=== PATIENT | female | born 1980 | race Caucasian/White ===

== ENCOUNTER 2017-12-30 08:20 | Emergency (ER) | payer BC, SELFPAY ==
[2017-12-30] VITALS (7 sets, daily range): BP systolic 126–174; BP diastolic 73–104; PULSE 103–140; RESP 19–26; TEMP 36.9–38.5; O2SAT 94–100; BMI 33.9
--- NOTE | 2017-12-30 08:38 | HMH.EDGENADL ---
ED Disposition Clinical Impression: Community acquired pneumonia Qualifiers: Laterality: right Lung location: upper lobe of lung Qualified Code(s): J18.1 - Lobar pneumonia, unspecified organism Disposition: Home, Self-Care Condition on Discharge: Good Instructions: DI for Pneumonia -- Adult Additional Instructions: Additional instructions for PNEUMONIA: See your physician as soon as possible for further evaluation. Return immediately if you have an uncontrollable fever greater than 102 degrees, difficulty breathing or shortness of breath, persistent vomiting, or severe chest pain. Prescriptions: Hydrocod/Acet 5/325 mg [[place] 5/325mg tablet] 1 tab PO Q6HP PRN #10 tab PRN Reason: Pain Doxycycline Monohydrate [Monodox] 100 mg PO BID #20 cap - Critical Care Critical Care Time: No Attestation: On 12/30/17, the high probability of a clinically significant, sudden or life threatening deterioration of the following system(s) required my full and direct attention, intervention and personal management. The time I documented below is in addition to time spent performing reported procedures but includes the following listed in this critical care notation. Medical Decision Making - Grant Inquiry Pt receiving controlled substance: No Vital Signs: 12/30/17 08:34 12/30/17 09:21 12/30/17 09:45 Temperature 100.9 F H Temperature Source Oral Pulse Rate 140 H Pulse Rate [Right Brachial] 137 H 129 H Respiratory Rate 26 H 22 Blood Pressure [Right Arm] 152/104 174/83 Blood Pressure Mean [Right Arm] 120 113 Blood Pressure Source [Right Arm] Automatic Cuff Automatic Cuff Blood Pressure Position [Right Arm] Sitting Sitting 02 Sat by Pulse Oximetry 97 97 100 Oxygen Delivery Method Room Air Room Air Room Air Oxygen Flow Rate (LPM) 12/30/17 09:59 12/30/17 11:00 12/30/17 11:30 Temperature 101.3 F H 98.7 F 98.5 F Temperature Source Oral Oral Oral Pulse Rate Pulse Rate [Right Brachial] 127 H 110 H 107 H Respiratory Rate 22 21 20 Blood Pressure [Right Arm] 169/84 126/77 131/73 Blood Pressure Mean [Right Arm] 112 93 92 Blood Pressure Source [Right Arm] Automatic Cuff Automatic Cuff Automatic Cuff Blood Pressure Position [Right Arm] Sitting Sitting Standing 02 Sat by Pulse Oximetry 98 96 94 L Oxygen Delivery Method Nasal Cannula Room Air Room Air Oxygen Flow Rate (LPM) 2 - Lab Data Lab Results 12/30/17 08:45: WBC 7.4, RBC 4.37, Hgb 13.0, Hct 38.6, MCV 88.5, MCH 29.8, MCHC 33.7, RDW 12.2, Plt Count 390, MPV 6.8 L, Neut % (Auto) 72.3, Lymph % (Auto) 20.5, [place] % (Auto) 5.2, Eos % (Auto) 1.6, Baso % (Auto) 0.4, Neut # (Auto) 5.4, Lymph # (Auto) 1.5, [place] # (Auto) 0.4, Eos # (Auto) 0.1, Baso # (Auto) 0.0 12/30/17 08:45: Sodium 132 L, Potassium 3.6, Chloride 98, Carbon Dioxide 24, Anion Gap 13.6, BUN 12, Creatinine 0.82, Estimated Creat Clear 141, Estimated GFR 78, Est GFR ( Amer) 95, Glucose 99, Calcium 9.3, Total Bilirubin 0.7, AST 8 L, ALT 38, Alkaline Phosphatase 127 H, Total Protein 9.6 H, Albumin 4.1, Globulin 5.5 H, Albumin/Globulin Ratio 0.7 L 12/30/17 08:45: Lactic Acid 1.6 12/30/17 08:45: D-Dimer 1230 H* 12/30/17 08:45: Total Creatine Kinase 55, CK-MB (CK-2) < 0.5, CK-MB (CK-2) Rel Index 0.9, Troponin I < 0.02 12/30/17 08:45: Serum HCG, Qual Negative Result diagrams: 12/30/17 08:45 12/30/17 08:45 Orders (Tests/Meds): ED MEDICATIONS Generic Name Dose Route Start Last Admin Trade Name Freq PRN Reason Stop Dose Admin Azithromycin 500 mg/ Sodium 250 mls @ 250 mls/hr 12/30/17 09:00 12/30/17 09:57 Chloride IV 01/13/18 08:59 250 mls/hr Q24H HAO Administration Protocol Ceftriaxone Sodium 1 gm/ 50 mls @ 100 mls/hr 12/30/17 09:00 12/30/17 09:33 Sodium Chloride IV 01/13/18 08:59 100 mls/hr Q24H HAO Administration Protocol Discontinued Medications Generic Name Dose Route Start Last Admin Trade Name Freq PRN Reason Stop Dose Admin Acetaminophen 650 m
--- NOTE | 2017-12-30 08:40 | XR_ITS ---
XR chest 2V HISTORY: ITS.REASON: COUGH ORDERING PHYSICIAN: Jakob Munoz MD PATIENT AGE: 37 years COMPARISON: None available FINDINGS: The cardiomediastinal silhouette and pulmonary vascularity are within normal limits. Patchy infiltrate is present in the right upper lobe. There are low lung volumes with some vascular crowding in the right lung base. No obvious effusion. No acute bony anomalies. IMPRESSION: Right upper lobe pneumonia
[2017-12-30 08:54] LABS: Hematocrit 38.6 % (37.0-47.0); Mean Corpuscular HGB Conc 33.7 g/dL (31.8-35.4); Mean Corpuscular Hemoglobin 29.8 pg (27.0-31.2); Mean Corpuscular Volume 88.5 fl (81-99); Red Blood Count 4.37 M/mm3 (4.20-5.40); White Blood Count 7.4 K/mm3 (4.8-10.8)
[2017-12-30 08:55] LABS: Basophils % 0.4 % (0.1-2.0); Eosinophils # 0.1 K/mm3 (0.0-0.4); Eosinophils % 1.6 % (0.1-12.0); Lymphocytes # 1.5 K/mm3 (0.7-4.5); Lymphocytes % 20.5 K/mm3 (10-50); Mean Platelet Volume 6.8 fl (7.4-10.4); Monocytes # 0.4 K/mm3 (0.1-1.0); Monocytes % 5.2 % (1.7-9.3); Neutrophils # 5.4 K/mm3 (1.8-7.8); Neutrophils % 72.3 % (37.0-80.0); Platelet Count 390 K/mm3 (142-424); Red Cell Distribution Width 12.2 % (11.5-17.5)
[2017-12-30 09:08] LABS: Alanine Aminotransferase 38 U/L (12-78); Albumin Level 4.1 gm/dL (3.4-5.0); Albumin/Globulin Ratio 0.7 (1.1-1.8); Alkaline Phosphatase 127 U/L (46-116); Anion Gap 13.6 mEq/L (5-15); Aspartate Amino Transferase 8 U/L (15-37); Bilirubin,Total 0.7 mg/dL (0.2-1.0); Blood Urea Nitrogen 12 mg/dL (7-18); Calcium 9.3 mg/dL (8.5-10.1); Carbon Dioxide 24 mmol/L (21.0-32.0); Chloride 98 mmol/L (98-107); Creatinine Clearance Estimated 141 mL/min (0-300); Creatinine,Serum 0.82 mg/dL (0.55-1.02); Estimated Glomerular Filt Rate 78 ml/min (>60); GFR (African American) 95 ML/MIN (>60); Globulin 5.5 gm/dl (1.3-3.2); Glucose 99 mg/dL (74-106); Potassium 3.6 mmoL/L (3.5-5.1); Sodium 132 mmol/L (136-145); Total Protein,Serum 9.6 gm/dL (6.4-8.2)
[2017-12-30 09:09] LABS: HCG Qualitative, Serum Negative (Negative)
[2017-12-30 09:11] LABS: Lactic Acid 1.6 mmol/L (0.4-2.0)
[2017-12-30 09:21] LABS: Creatine Kinase 55 U/L (26-192); Troponin I < 0.02 ng/ml (0.00-0.06)
[2017-12-30 09:24] LABS: D-Dimer 1230 (0-400)
[2017-12-30 09:25] LABS: CKMB Relative Index 0.9 U/L (0-4.0); Creatine Kinase MB < 0.5 ng/ml (0.0-3.6)
--- NOTE | 2017-12-30 09:28 | CT_ITS ---
CT angio chest HISTORY: ITS.REASON: chest pain, elev d-dimer ORDERING PHYSICIAN: Jakob Munoz MD PATIENT AGE: 37 years TECHNIQUE: Axial images obtained following the administration of 75 mL of Isovue 370 . Sagittal, and coronal reformatted images are also generated and reviewed. All CT scans at the facility use one or more dose reduction, viz: automated exposure control; ma/kV adjustment per patient size (including targeted exams where dose is matched to indication; i.e. head); or iterative reconstruction technique. COMPARISON: Radiograph of the same day FINDINGS: No evidence of pulmonary embolus, aortic aneurysm, or aortic dissection. There is increased soft tissue density within the mediastinum. This is nonspecific and could be related to residual finding tissue or adenopathy. There is mild thickening of the pericardium posteriorly suggesting mild pericardial effusion measuring up to 5 mm in thickness. Increased density is present in the right paratracheal region consistent with adenopathy measuring up to 2 cm. Some of this density is likely related to unopacified azygous vein. Mildly prominent nodes are present in the right hilum. Increased soft tissue density extends from the right hilum in the peribronchial region. This is nonspecific and could may be related to dense consolidation from pneumonia. Cannot exclude the possibility of neoplastic process therefore, follow-up is recommended following adequate treatment for pneumonia. This corresponds to the radiographic abnormality noted on the plain film. In addition, there is a peripheral opacity in the right upper lobe laterally measuring 10 mm and may also be due to an area of consolidation/pneumonia or even neoplasm. There are atelectatic changes in the lung bases. Upper abdominal images show borderline splenomegaly at 14 cm. No pleural effusions. IMPRESSION: 1. No evidence of pulmonary embolus or aortic aneurysm. 2. Consolidation in the right perihilar region with a peripheral opacity in the right upper lobe. These findings may be related to pneumonia. Neoplasm could have a similar appearance and follow-up is recommended. 3. Mild mediastinal adenopathy with density noted in the anterior mediastinum which could represent residual finding tissue or adenopathy. Follow-up recommended
== END 2017-12-30 12:32 | disposition home or self-care (01) ==
PROVIDERS: Emergency Provider Emergency Medicine; Family Provider Family Medicine
DX: J18.1 Lobar pneumonia, unspecified organism (principal); D64.9 Anemia, unspecified; E87.6 Hypokalemia
CPT/HCPCS: 71046; 71275; 80053; 82550; 82553; 83605; 84484; 84703; 85025; 85378; 87040; 93005; 96365; 96367; 96375; 99284; J0456; Q9967

== ENCOUNTER 2018-01-03 14:45 | Emergency (ER) | payer BC, SELFPAY ==
[2018-01-03] VITALS (8 sets, daily range): BP systolic 116–131; BP diastolic 70–97; PULSE 78–119; RESP 18–20; TEMP 36.6–38.6; O2SAT 98–100; BMI 33.9
--- NOTE | 2018-01-03 | XR_ITS ---
XR chest 2V HISTORY: Follow-up pneumonia ORDERING PHYSICIAN: Melissa Zeng PATIENT AGE: 37 years COMPARISON: 12/30/2017 FINDINGS: There is mild cardiomegaly without failure.. Right upper lobe pneumonia has shown some improvement. There remains mild residual density in right upper lobe. There are small bilateral pleural effusions. There is increased density in the azygos region of the right paratracheal area consistent with adenopathy. IMPRESSION: 1. Persistent but mildly improved right upper lobe pneumonia. 2. Persistent right paratracheal/azygous adenopathy. 3. Small bilateral pleural effusions
--- NOTE | 2018-01-03 15:31 | PC.NURSE ---
Triage nurse alerted me to pt's CC and tachypnea. Pt c/o SOA despite completing 5 days of levaquin and starting doxy. Was seen in ER 12/30. Dx CAP. Declined admission. Rx doxycycline. States she took two then started w/ N/V. Hasn't been able to tolerate food or fluids x 3 days. Now weak as well as still SOA and regretting decision to not be admitted. Pt visibly tachypnec and even more so w/ deep breaths for auscultation. Lungs clear. Agrees to transfer to ER. Report called to Patrica Vasquez, STAFFING ASSOCIATE. Bed 10 available.
[2018-01-03 16:24] LABS: Basophils % 0.5 % (0.1-2.0); Eosinophils # 0.1 K/mm3 (0.0-0.4); Eosinophils % 1.6 % (0.1-12.0); Hemoglobin 10.7 g/dL (12.2-16.2); Lymphocytes # 2.2 K/mm3 (0.7-4.5); Lymphocytes % 30.3 K/mm3 (10-50); Mean Corpuscular HGB Conc 34.4 g/dL (31.8-35.4); Mean Corpuscular Hemoglobin 29.8 pg (27.0-31.2); Mean Corpuscular Volume 86.5 fl (81-99); Mean Platelet Volume 7.1 fl (7.4-10.4); Monocytes # 0.5 K/mm3 (0.1-1.0); Monocytes % 6.8 % (1.7-9.3); Neutrophils # 4.3 K/mm3 (1.8-7.8); Neutrophils % 60.8 % (37.0-80.0); Platelet Count 413 K/mm3 (142-424); Red Blood Count 3.58 M/mm3 (4.20-5.40); White Blood Count 7.1 K/mm3 (4.8-10.8)
[2018-01-03 16:36] LABS: Alanine Aminotransferase 28 U/L (12-78); Albumin Level 3.5 gm/dL (3.4-5.0); Albumin/Globulin Ratio 0.7 (1.1-1.8); Alkaline Phosphatase 106 U/L (46-116); Anion Gap 14.1 mEq/L (5-15); Aspartate Amino Transferase 8 U/L (15-37); Bilirubin,Total 0.9 mg/dL (0.2-1.0); Blood Urea Nitrogen 13 mg/dL (7-18); Calcium 9.7 mg/dL (8.5-10.1); Carbon Dioxide 25 mmol/L (21.0-32.0); Chloride 97 mmol/L (98-107); Creatinine Clearance Estimated 140 mL/min (0-300); Creatinine,Serum 0.83 mg/dL (0.55-1.02); Estimated Glomerular Filt Rate 77 ml/min (>60); GFR (African American) 94 ML/MIN (>60); Globulin 5.3 gm/dl (1.3-3.2); Glucose 100 mg/dL (74-106); Potassium 3.1 mmoL/L (3.5-5.1); Sodium 133 mmol/L (136-145); Total Protein,Serum 8.8 gm/dL (6.4-8.2)
[2018-01-03 16:40] LABS: Lactic Acid 1.5 mmol/L (0.4-2.0)
--- NOTE | 2018-01-03 16:52 | HMH.EDGENADL ---
ED Disposition Condition on Discharge: Fair Time of Disposition: 16:58 - Critical Care Critical Care Time: No <NasimadamQasim - Last Filed: 01/03/18 19:53> Condition on Discharge: Good - Critical Care Critical Care Time: No <Jakob Munoz - Last Filed: 01/03/18 20:34> Clinical Impression: Hypokalemia Pneumonia Qualifiers: Pneumonia type: due to unspecified organism Laterality: right Lung location: upper lobe of lung Qualified Code(s): J18.1 - Lobar pneumonia, unspecified organism Nausea and vomiting Qualifiers: Vomiting type: unspecified Vomiting Intractability: unspecified Qualified Code(s): R11.2 - Nausea with vomiting, unspecified Anemia Qualifiers: Anemia type: iron deficiency Iron deficiency anemia type: other iron deficiency Qualified Code(s): D50.8 - Other iron deficiency anemias Disposition: Home, Self-Care Instructions: DI for Pneumonia -- Adult Additional Instructions: Levaquin prescription was transmitted to your pharmacy by Dr. Aldana, However you have already been on that for this pneumonia. Therefore, I have transmitted a prescription for a Z-Adonis which she can take instead. take Zofran 15-20 minutes prior to meals, alternate Motrin with Tylenol for fever control, as discussed. Prescriptions: Azithromycin [Zithromax 250mg tab] 250 mg PO DIRECTED #6 tab levoFLOXacin [Levaquin 750mg tablet] 750 mg PO DAILY #9 tab Promethazine HCl [Phenergan 25mg Tablet Take Home Pack (10)] 25 adonis PO QIDP PRN #20 adonis PRN Reason: Nausea Referrals: Dieudonne Rivero MD [Family Provider] - Attestation: On 01/03/18, the high probability of a clinically significant, sudden or life threatening deterioration of the following system(s) required my full and direct attention, intervention and personal management. The time I documented below is in addition to time spent performing reported procedures but includes the following listed in this critical care notation. Medical Decision Making - Medical Records Medical records reviewed: Yes: I reviewed the patient's medical records. - Grant Inquiry Pt receiving controlled substance: No - Lab Data Lab results reviewed: Yes: I reviewed the patient's lab results. Result diagrams: 01/03/18 16:00 01/03/18 16:00 - Radiology Data #1 Image(s): Chest Image Reviewed: Yes I reviewed the patient's radiology results, Yes I reviewed the patient's radiology image, Yes I discussed the image results w/the radiologist - Physician Consults Physician Consulted: Dr Soria Time: 18:30 Reason -: Admission, Pt condition Comment/Response: Advise of patient's presentation and findings, Dr. Soria declined admission, stating patient is not hypoxic, and she should respond well to a different oral antibiotic, recommended discontinuing the doxycycline. - Reevaluation(s) Time: 20:00 <Qasim Aldana - Last Filed: 01/03/18 19:53> - Lab Data Result diagrams: 01/03/18 16:00 01/03/18 16:00 <Jakob Munoz - Last Filed: 01/03/18 20:34> Vital Signs: 01/03/18 14:54 01/03/18 15:41 01/03/18 16:46 Temperature 97.9 F 98.2 F Temperature Source Temporal Artery Scan Oral Pulse Rate [Brachial] 118 H 113 H 119 H Respiratory Rate 18 20 18 Blood Pressure [Right Arm] 130/97 116/89 131/95 Blood Pressure Mean [Right Arm] 108 98 107 Blood Pressure Source [Right Arm] Automatic Cuff Automatic Cuff Blood Pressure Position [Right Arm] Sitting Sitting 02 Sat by Pulse Oximetry 98 100 100 Oxygen Delivery Method Room Air Room Air 01/03/18 17:00 01/03/18 18:30 01/03/18 19:27 Temperature 101.5 F H 101.5 F H 101.2 F H Temperature Source Oral Oral Tympanic Pulse Rate [Brachial] 110 H Respiratory Rate 20 Blood Pressure [Right Arm] 130/77 Blood Pressure Mean [Right Arm] 94 Blood Pressure Source [Right Arm] Automatic Cuff Blood Pressure Position [Right Arm] Sitting 02 Sat by Pulse Oximetry 99 Oxygen Delivery Method Room Air 01/03/18 19:55 Temp
--- NOTE | 2018-01-03 17:01 | PC.NURSE ---
LAMAR BARNES speaking with Dr. Soria who is ventilation equipment tender for Dr. Rivero.
[2018-01-03 18:45] LABS: Adenovirus,PCR Not Detected (NotDetected); Bordetella Pertussis Not Detected (NotDetected); Chlamydophila Pneumoniae, PCR Not Detected (NotDetected); Coronavirus 229E Not Detected (NotDetected); Coronavirus NL63 Not Detected (NotDetected); Coronavirus OC43 Not Detected (NotDetected); Coronovirus HKU1,PCR Not Detected (NotDetected); Human Metapneumovirus Not Detected (NotDetected); Influenza A, PCR Not Detected (NotDetected); Influenza AH1, 2009 Not Detected (NotDetected); Influenza AH1, PCR Not Detected (NotDetected); Influenza AH3,PCR Not Detected (NotDetected); Influenza B, PCR Not Detected (NotDetected); Mycoplasma Pneumoniae, PCR Not Detected (NotDected); Parainfluenza 1, PCR Not Detected (NotDetected); Parainfluenza 2, PCR Not Detected (NotDetected); Parainfluenza 3, PCR Not Detected (NotDetected); Parainfluenza 4, PCR Not Detected (NotDetected); Respiratory Syncytial Virus Not Detected (NotDetected); Rhinovirus/Enterovirus Not Detected (NotDetected)
== END 2018-01-03 20:50 | disposition home or self-care (01) ==
LOC: UTC 14:47 → ER 15:37
PROVIDERS: Emergency Medicine; Emergency Provider Emergency Medicine; Family Provider Family Medicine
DX: J18.1 Lobar pneumonia, unspecified organism (principal); D50.8 Other iron deficiency anemias
CPT/HCPCS: 71046; 80053; 83605; 85025; 87040; 87486; 87581; 87633; 87798; 96365; 96366; 96375; 96376; 99284; 99285; J1956; J2405

== ENCOUNTER 2018-01-06 07:21 | Emergency (ER) | payer BC, SELFPAY ==
[2018-01-06 07:27] VITALS: BP 144/78; PULSE 122; RESP 18; TEMP 36.7; O2SAT 97; BMI 33.0
[2018-01-06 07:50] LABS: Microscopic, Urine URINE MICROSCOPIC (MICROSCOPIC)
[2018-01-06 07:56] LABS: Appearance,Urine CLEAR (Clear); Blood, Urine 3+ (Negative); Color,Urine YELLOW (Yellow); Glucose,Urine (UA) Negative (Negative); Ketones,Urine 3+ (Negative); Leukocyte Esterase,Urine TRACE (Negative); Nitrate,Urine Negative (Negative); Protein,Urine TRACE (Negative); Specific Gravity, Urine 1.025 (1.005-1.030)
[2018-01-06 08:03] LABS: Bilirubin,Urine Negative (Negative)
[2018-01-06 08:05] LABS: Basophils % 0.6 % (0.1-2.0); Eosinophils # 0.2 K/mm3 (0.0-0.4); Eosinophils % 2.1 % (0.1-12.0); Hematocrit 31.5 % (37.0-47.0); Hemoglobin 10.4 g/dL (12.2-16.2); Lymphocytes # 1.9 K/mm3 (0.7-4.5); Mean Corpuscular Hemoglobin 28.6 pg (27.0-31.2); Mean Corpuscular Volume 86.8 fl (81-99); Mean Platelet Volume 7.2 fl (7.4-10.4); Monocytes # 0.6 K/mm3 (0.1-1.0); Monocytes % 7.5 % (1.7-9.3); Neutrophils # 4.9 K/mm3 (1.8-7.8); Neutrophils % 64.8 % (37.0-80.0); Platelet Count 484 K/mm3 (142-424); Red Blood Count 3.63 M/mm3 (4.20-5.40); Red Cell Distribution Width 12.3 % (11.5-17.5); White Blood Count 7.5 K/mm3 (4.8-10.8)
[2018-01-06 08:15] LABS: Alanine Aminotransferase 25 U/L (12-78); Albumin Level 3.4 gm/dL (3.4-5.0); Albumin/Globulin Ratio 0.6 (1.1-1.8); Alkaline Phosphatase 118 U/L (46-116); Amylase 36 U/L (25-125); Anion Gap 19.1 mEq/L (5-15); Aspartate Amino Transferase 7 U/L (15-37); Blood Urea Nitrogen 13 mg/dL (7-18); Calcium 9.4 mg/dL (8.5-10.1); Carbon Dioxide 21 mmol/L (21.0-32.0); Chloride 97 mmol/L (98-107); Creatinine Clearance Estimated 138 mL/min (0-300); Creatinine,Serum 0.82 mg/dL (0.55-1.02); Estimated Glomerular Filt Rate 78 ml/min (>60); GFR (African American) 95 ML/MIN (>60); Globulin 5.3 gm/dl (1.3-3.2); Glucose 106 mg/dL (74-106); Lipase 101 u/L (73-393); Potassium 3.1 mmoL/L (3.5-5.1); Sodium 134 mmol/L (136-145); Total Protein,Serum 8.7 gm/dL (6.4-8.2)
[2018-01-06 08:19] LABS: Bacteria,Urine 2+ /lpf; Mucus,Urine 1+ /lpf; RBC,Urine 20-50 #/hpf (0-3)
--- NOTE | 2018-01-06 08:43 | HMH.EDABDPAI ---
ED Disposition Clinical Impression: Cardiac tamponade, Hypokalemia Disposition: Xfer Critical Access Hosp Condition on Discharge: Fair Instructions: DI for Acute Abdomen - Critical Care Critical Care Time: No Attestation: On 01/06/18, the high probability of a clinically significant, sudden or life threatening deterioration of the following system(s) required my full and direct attention, intervention and personal management. The time I documented below is in addition to time spent performing reported procedures but includes the following listed in this critical care notation. Medical Decision Making - Medical Records Medical records reviewed: Yes: I reviewed the patient's medical records. - Grant Inquiry Pt receiving controlled substance: No Vital Signs: 01/06/18 07:27 01/06/18 11:21 Temperature 98.0 F 98.3 F Temperature Source Oral Oral Pulse Rate [Right Radial] 122 H 118 H Respiratory Rate 18 20 Blood Pressure [Left Arm] 144/78 134/83 Blood Pressure Mean [Left Arm] 100 100 Blood Pressure Source [Left Arm] Manual Cuff/ Palpation Automatic Cuff Blood Pressure Position [Left Arm] Sitting Sitting 02 Sat by Pulse Oximetry 97 99 Oxygen Delivery Method Room Air Room Air - Lab Data Lab results reviewed: Yes: I reviewed the patient's lab results. Lab Results 01/06/18 07:43: Urine Color Yellow, Urine Appearance Clear, Urine pH 6.0, Ur Specific [place] 1.025, Urine Protein Trace, Urine Glucose (UA) Negative, Urine Ketones 3+, Urine Blood 3+, Urine Nitrate Negative, Urine Bilirubin Negative, Urine Urobilinogen 1.0, Ur Leukocyte Esterase Trace, Urine RBC 20-50, Urine WBC 3-5, Ur Squamous Epith Cells 5-10, Urine Bacteria 2+, Urine Mucus 1+ 01/06/18 07:43: Urine HCG, Qual Negative 01/06/18 07:58: WBC 7.5, RBC 3.63 L, Hgb 10.4 L, Hct 31.5 L, MCV 86.8, MCH 28.6, MCHC 33.0, RDW 12.3, Plt Count 484 H, MPV 7.2 L, Neut % (Auto) 64.8, Lymph % (Auto) 25.0, [place] % (Auto) 7.5, Eos % (Auto) 2.1, Baso % (Auto) 0.6, Neut # (Auto) 4.9, Lymph # (Auto) 1.9, [place] # (Auto) 0.6, Eos # (Auto) 0.2, Baso # (Auto) 0.0 01/06/18 07:58: Sodium 134 L, Potassium 3.1 L, Chloride 97 L, Carbon Dioxide 21, Anion Gap 19.1 H, BUN 13, Creatinine 0.82, Estimated Creat Clear 138, Estimated GFR 78, Est GFR ( Amer) 95, Glucose 106, Calcium 9.4, Total Bilirubin 1.0, AST 7 L, ALT 25, Alkaline Phosphatase 118 H, Total Protein 8.7 H, Albumin 3.4, Globulin 5.3 H, Albumin/Globulin Ratio 0.6 L, Amylase 36, Lipase 101 01/06/18 12:13: Lactic Acid 2.0 Result diagrams: 01/06/18 07:58 01/06/18 07:58 Orders (Tests/Meds): ED MEDICATIONS Generic Name Dose Route Start Last Admin Trade Name Freq PRN Reason Stop Dose Admin Potassium Chloride/Sodium Chloride 1,000 mls @ 100 mls/hr 01/06/18 11:15 01/06/18 11:56 Kcl 40 Meq-Ns 1,000ml Iv Soln IV 02/05/18 11:14 100 mls/hr .Q10H HAO Administration Discontinued Medications Generic Name Dose Route Start Last Admin Trade Name Freq PRN Reason Stop Dose Admin Acetaminophen 650 mg 01/06/18 11:55 01/06/18 11:56 Acetaminophen 325mg Tab PO 01/06/18 11:56 650 mg ONCE ONE Administration Sodium Chloride 1,000 mls @ 999 mls/hr 01/06/18 07:45 01/06/18 11:15 Sod Chlor 0.9% 1000ml Bag IV 01/06/18 08:45 Not Given .Q1H1M HAO Iopamidol 75 ml 01/06/18 11:44 01/06/18 11:45 [id number]; 75ml Vial IV 01/06/18 11:45 75 ml ONCE ONE Administration Sodium Chloride 10 ml 01/06/18 11:44 01/06/18 11:44 Rad-Saline Flush 10ml Syringe IV 01/06/18 11:45 10 ml ONCE ONE Administration ORDERS Category Date Time Status Urine Culture Stat Micro 01/06/18 07:43 Received - CT Data CT Scan: Abdomen Time Received: 11:[address] Reviewed: Yes: I have viewed the radiologist's interpretation Findings Narrative: Fluid right pelvis etiology ? and pericardial effusion - US Data US Images: Other (cardiac) ED US Reviewed: Yes: I have reviewed the patient's US results Fi
[2018-01-06 09:08] LABS: Urine Pregnancy, HCG Qual. Negative (Negative)
--- NOTE | 2018-01-06 09:41 | CT_ITS ---
CT abdomen pelvis wo con CLINICAL INDICATION: Right flank pain, right-sided abdominal pain with bloating ITS.REASON: r/o kidney stone ORDERING PHYSICIAN: Minh Yeboah MD PATIENT AGE: 37 years COMPARISON: None TECHNIQUE: Axial images obtained with sagittal and coronal reformats. All CT scans at the facility use one or more dose reduction, viz: automated exposure control; ma/kV adjustment per patient size (including targeted exams where dose is matched to indication; i.e. head); or iterative reconstruction technique. PROCEDURE: Oral Contrast: None IV Contrast: None . FINDINGS: There are subsegmental atelectatic changes in both lung bases. There is moderate to severe thickening of the pericardium consistent with a pericardial effusion with the pericardium measuring up to 2 cm. Previously the pericardium measuring 6 mm. There is diffuse fatty liver infiltration. Focal decreased attenuation involves the left lobe of the liver near the falciform ligament region consistent with focal fatty infiltration.. No radio opaque gallstone. Spleen is upper normal at 13 cm. The adrenal glands and pancreas have an unremarkable appearance. There is some mild haziness of the peritoneal fat in the right upper quadrant with minimal thickening of the anterior pararenal fascia and right lateral conal fascia. No renal calculi or hydronephrosis is evident. There are varicosities noted about the renal niko on both sides and in the right gonadal vein region. Small amount fluid is present in the anterior pararenal fascia in the right paracolic gutter. The appendix has an unremarkable appearance. Small amount fluid is present posterior to the cecum. Fluid is also present in the pelvis. There is an IUD present. No acute bony anomalies. IMPRESSION: 1. Enlarging moderate-sized pericardial effusion with small bilateral pleural effusions. 2. Small amount fluid in right paracolic gutter and along the anterior right pararenal fascia as well as fluid in the pelvis and posterior to the cecum. The etiology of the fluid is undetermined 3. There is minimal stranding of the fat in the right upper quadrant and mild thickening of the descending portion of the duodenum. These findings could be related to inflammatory changes of the duodenum. Pancreatitis is also a consideration. 4. Varicosities noted about the renal niko and along the right gonadal vein region. Consider repeating exam with IV contrast for more thorough evaluation if clinically warranted.
--- NOTE | 2018-01-06 11:05 | CT_ITS ---
CT abdomen w con CLINICAL INDICATION: Abdominal pain, right flank pain, bloating, abnormal unenhanced exam showing multiple collateral vessels in the renal hilar area ITS.REASON: pain ORDERING PHYSICIAN: Minh Yeboah MD PATIENT AGE: 37 years COMPARISON: Unenhanced exam from the same day TECHNIQUE: Axial images obtained with sagittal and coronal reformats. All CT scans at the facility use one or more dose reduction, viz: automated exposure control; ma/kV adjustment per patient size (including targeted exams where dose is matched to indication; i.e. head); or iterative reconstruction technique. PROCEDURE: Oral Contrast: None IV Contrast: 75 mL's of Isovue-370. FINDINGS: Atelectatic changes are present in the lung bases with small bilateral pleural effusion. Moderate-sized pericardial effusion also noted measuring 2.5 cm in thickness. Liver has a somewhat heterogeneous enhancement pattern with a mottled appearance and may be the result of hepatic venous congestion. This may be seen with congestive hepatopathy/right heart failure/constrictive pericarditis among other less common entities. There is borderline splenomegaly at 13 cm. Low density changes are present in the medial aspect of the left left hepatic lobe at the fissure for the ligamentum teres and may be due to focal fatty infiltration. May be confirmed with long-term follow-up. This area measures approximately 2.5 cm. The pancreas and adrenal glands are unremarkable. No gallstones evident. There is stranding of the fat once again noted in the right upper quadrant and around the descending duodenum with persistent thickening of the right anterior pararenal fascia and a small amount of fluid in the right paracolic gutter inferiorly and right lateral conal fascia. Mild amount fluid also once again noted in the pelvis. There is high in place. No evidence of intestinal obstruction or free air. The appendix has an unremarkable appearance. Collateral vessels once again noted about the renal niko on both sides. No convincing evidence of IVC obstruction. IMPRESSION: 1. Moderate-sized pericardial effusion with small bilateral pleural effusions. 2. Mottled appearance of the liver which may be seen with congestive hepatopathy 3. Collateral vessels around the renal hilum once again noted. However, no evidence of inferior vena cava obstruction. 4. Persistent stranding of the fat in the right upper quadrant with fluid in the right paracolic gutter and right lateral conal fascia and within the pelvis. There is stranding of the fat around the descending duodenum. Inflammatory changes of the right upper quadrant considered such inflammatory changes of the gallbladder or duodenitis or even pancreatitis.
[2018-01-06 11:21] VITALS: BP 134/83; PULSE 118; RESP 20; TEMP 36.8; O2SAT 99
--- NOTE | 2018-01-06 11:47 | CA_ITS ---
PROCEDURE: 2-D M-mode and color Doppler study INDICATIONS FOR THE TEST: Chest pain COPD Heart Murmur Tobacco Smoking Palpitations+ Fatigue+ Syncope Edema Hypertension Diabetes Mellitus Rheumatic Fever SOB+HALL+Obesity+Hyperlipidemia Family History HD Additional History Effusion PATIENT INFORMATION HEIGHT: 66 WEIGHT: 202 GENDER: Female B/P: 134/83 2-D/M-MODE INTERPRETATION: 2-D MEASUREMENTS OBSERVED VALUES IN CMS Right Ventricular Dimension (RVDd) 2.4 Interventricular Septum (Thickness)(IVsd) 0.8 Left Ventricular Internal Dimensions(LVIDd) 3.5 Left Ventricular Posterior Wall (Thickness)(LVPWd) 0.8 Aortic Root 2.8 Aortic Cusp Separation 2.0 Left Atrial Dimensions (LAD) 2.9 2D 1. Left atrium is normal size, left ventricle is normal size, there is no concentric left ventricular hypertrophy, visually estimated ejection fraction of 65% with no obvious regional wall motion abnormality. 2. The right atrium and right ventricle are normal size and contractility. 3. The aortic, mitral and tricuspid valve are structurally normal. 4. The pulmonic valve is poorly visualized. 6. There is large circumferential pericardial effusion noted. DOPPLER INTERROGATION: Doppler interrogation of the aortic, mitral and tricuspid valvular presence of mild mitral and tricuspid regurgitation, there is significant variation in the mitral inflow or tricuspid inflow velocity within, inferior vena cava is dilated without inspiratory collapse is suggestive of raised intrapericardial pressure as well as tamponade physiology. There is early diastolic collapse of the right ventricle seen. CONCLUSION: 1. Normal left ventricular size, preserved left ventricular systolic function, visually estimated ejection fraction is 65% with no obvious regional wall motion abnormality. 2. Large circumferential pericardial effusion noted with Doppler evidence of raised intrapericardial pressure and temporal not physiology as described above.
--- NOTE | 2018-01-06 13:09 | HMH.CNCARD ---
History of Present Illness Consult date: 01/06/18 Requesting physician: Dieudonne Rivero Consult reason: shortness of breath Chief complaint: Abdominal pain,SOA History of present illness: 37-year-old white female seen in the emergency department for complaint of abdominal pain and shortness of breath. Patient relates having upper respiratory infection/bronchitis/pneumonia for the last few days with increasing shortness of breath. She denies any history of tobacco use, diabetes or previous heart disease. CAT scan obtained due to abdominal pain revealed evidence of pericardial effusion. Cardiology was consulted for further evaluation. Echocardiogram revealed evidence of tamponade physiology with evidence of pulsus paradoxus noted on exam. [facility] History Medical History: Denies:: Cancer, Diabetes Mellitus Type 1, Diabetes Mellitus Type 2, MRSA Amputation: No - *Social History Educational Level: Completed High School Smoking Status: Unknown if ever smoked Alcohol Intake: never - Psychiatric History Expresses thoughts of harming self/others: None Suicide Plan Description: No Plan Meds Home Medications Medication Instructions Recorded Confirmed Type Azithromycin [Zithromax 250mg 250 mg PO DIRECTED 01/06/18 01/06/18 History tab] Allergies Allergy/AdvReac Type Severity Reaction Status Date / Time No Known Allergies Allergy Verified 01/06/18 07:36 Review of Systems - *Cardiovascular Reports shortness of breath, Reports shortness of breath with activity - *Respiratory Reports shortness of breath, Reports shortness of breath with activity - *Gastrointestinal Reports abdominal pain Exam Vital signs and Labs for Last 24 Hours: Temp Pulse Resp BP Pulse Ox 98.3 F 118 H 20 134/83 99 01/06/18 11:21 01/06/18 11:21 01/06/18 11:21 01/06/18 11:21 01/06/18 11:21 Laboratory Results - last 24 hr 01/06/18 07:43: Urine Color Yellow, Urine Appearance Clear, Urine pH 6.0, Ur Specific [place] 1.025, Urine Protein Trace, Urine Glucose (UA) Negative, Urine Ketones 3+, Urine Blood 3+, Urine Nitrate Negative, Urine Bilirubin Negative, Urine Urobilinogen 1.0, Ur Leukocyte Esterase Trace, Urine RBC 20-50, Urine WBC 3-5, Ur Squamous Epith Cells 5-10, Urine Bacteria 2+, Urine Mucus 1+ 01/06/18 07:43: Urine HCG, Qual Negative 01/06/18 07:58: WBC 7.5, RBC 3.63 L, Hgb 10.4 L, Hct 31.5 L, MCV 86.8, MCH 28.6, MCHC 33.0, RDW 12.3, Plt Count 484 H, MPV 7.2 L, Neut % (Auto) 64.8, Lymph % (Auto) 25.0, [place] % (Auto) 7.5, Eos % (Auto) 2.1, Baso % (Auto) 0.6, Neut # (Auto) 4.9, Lymph # (Auto) 1.9, [place] # (Auto) 0.6, Eos # (Auto) 0.2, Baso # (Auto) 0.0 01/06/18 07:58: Sodium 134 L, Potassium 3.1 L, Chloride 97 L, Carbon Dioxide 21, Anion Gap 19.1 H, BUN 13, Creatinine 0.82, Estimated Creat Clear 138, Estimated GFR 78, Est GFR ( Amer) 95, Glucose 106, Calcium 9.4, Total Bilirubin 1.0, AST 7 L, ALT 25, Alkaline Phosphatase 118 H, Total Protein 8.7 H, Albumin 3.4, Globulin 5.3 H, Albumin/Globulin Ratio 0.6 L, Amylase 36, Lipase 101 01/06/18 12:13: Lactic Acid 2.0 I & O for Last 24 hours: Intake & Output 01/04/18 01/05/18 01/06/18 01/07/18 11:59 11:59 11:59 11:59 Weight 205 lb - *Routine Neck Exam Present: JVD - *Routine Respiratory Exam Present: CTA bilaterally - *Routine Cardiovascular Exam Present: tachycardia - *Routine Abdominal Exam Present: soft. Absent: tenderness - *Routine Neurological Exam Present: alert, oriented X3, moving all extremities Assessment and Plan (1) Pericardial effusion with cardiac tamponade Current visit: Yes Status: Acute Category: Medical Code(s): I31.3 - Pericardial effusion (noninflammatory); I31.4 - Cardiac tamponade (2) Anemia Current visit: No Status: Acute Qualifiers: Anemia type: iron deficiency Iron deficiency anemia type: other iron deficiency Qualified Code(s): D50.8 - Other iron deficiency anemias Category: Medical
--- NOTE | 2018-01-06 13:13 | P.CONS_ITS ---
History of Present Illness Consult date: 01/06/18 Requesting physician: Dieudonne Rivero Consult reason: shortness of breath Chief complaint: Abdominal pain,SOA History of present illness: 37-year-old white female seen in the emergency department for complaint of abdominal pain and shortness of breath. Patient relates having upper respiratory infection/bronchitis/pneumonia for the last few days with increasing shortness of breath. She denies any history of tobacco use, diabetes or previous heart disease. CAT scan obtained due to abdominal pain revealed evidence of pericardial effusion. Cardiology was consulted for further evaluation. Echocardiogram revealed evidence of tamponade physiology with evidence of pulsus paradoxus noted on exam. [facility] History Medical History: Denies:: Cancer, Diabetes Mellitus Type 1, Diabetes Mellitus Type 2, MRSA Amputation: No - *Social History Educational Level: Completed High School Smoking Status: Unknown if ever smoked Alcohol Intake: never - Psychiatric History Expresses thoughts of harming self/others: None Suicide Plan Description: No Plan Meds Home Medications Medication Instructions Recorded Confirmed Type Azithromycin [Zithromax 250mg 250 mg PO DIRECTED 01/06/18 01/06/18 History tab] Allergies Allergy/AdvReac Type Severity Reaction Status Date / Time No Known Allergies Allergy Verified 01/06/18 07:36 Review of Systems - *Cardiovascular Reports shortness of breath, Reports shortness of breath with activity - *Respiratory Reports shortness of breath, Reports shortness of breath with activity - *Gastrointestinal Reports abdominal pain Exam Vital signs and Labs for Last 24 Hours: Temp Pulse Resp BP Pulse Ox 98.3 F 118 H 20 134/83 99 01/06/18 11:21 01/06/18 11:21 01/06/18 11:21 01/06/18 11:21 01/06/18 11:21 Laboratory Results - last 24 hr 01/06/18 07:43: Urine Color Yellow, Urine Appearance Clear, Urine pH 6.0, Ur Specific [place] 1.025, Urine Protein Trace, Urine Glucose (UA) Negative, Urine Ketones 3+, Urine Blood 3+, Urine Nitrate Negative, Urine Bilirubin Negative, Urine Urobilinogen 1.0, Ur Leukocyte Esterase Trace, Urine RBC 20-50, Urine WBC 3-5, Ur Squamous Epith Cells 5-10, Urine Bacteria 2+, Urine Mucus 1+ 01/06/18 07:43: Urine HCG, Qual Negative 01/06/18 07:58: WBC 7.5, RBC 3.63 L, Hgb 10.4 L, Hct 31.5 L, MCV 86.8, MCH 28.6 , MCHC 33.0, RDW 12.3, Plt Count 484 H, MPV 7.2 L, Neut % (Auto) 64.8, Lymph % ( Auto) 25.0, [place] % (Auto) 7.5, Eos % (Auto) 2.1, Baso % (Auto) 0.6, Neut # (Auto ) 4.9, Lymph # (Auto) 1.9, [place] # (Auto) 0.6, Eos # (Auto) 0.2, Baso # (Auto) 0.0 01/06/18 07:58: Sodium 134 L, Potassium 3.1 L, Chloride 97 L, Carbon Dioxide 21 , Anion Gap 19.1 H, BUN 13, Creatinine 0.82, Estimated Creat Clear 138, Estimated GFR 78, Est GFR ( Amer) 95, Glucose 106, Calcium 9.4, Total Bilirubin 1.0, AST 7 L, ALT 25, Alkaline Phosphatase 118 H, Total Protein 8.7 H , Albumin 3.4, Globulin 5.3 H, Albumin/Globulin Ratio 0.6 L, Amylase 36, Lipase 101 01/06/18 12:13: Lactic Acid 2.0 I & O for Last 24 hours: Intake & Output 01/04/18 01/05/18 01/06/18 01/07/18 11:59 11:59 11:59 11:59 Weight 205 lb - *Routine Neck Exam Present: JVD - *Routine Respiratory Exam Present: CTA bilaterally - *Routine Cardiovascular Exam Present: tachycardia - *Routine Abdominal Exam Present: soft. Absent: tenderne
--- NOTE | 2018-01-06 13:13 | PC.NURSE ---
DR CAMARENA ON PHONE WITH Sommer BRAMBILA (CARDIOLOGY)
[2018-01-06 13:41] VITALS: BP 151/92; PULSE 113; RESP 30; TEMP 36.6; O2SAT 97
== END 2018-01-06 13:48 | disposition short-term general hospital (02) ==
PROVIDERS: Emergency Medicine; Emergency Provider Family Medicine; Family Provider Family Medicine
DX: J18.9 Pneumonia, unspecified organism (principal); I31.4 Cardiac tamponade; E87.6 Hypokalemia; N93.9 Abnormal uterine and vaginal bleeding, unspecified; R63.0 Anorexia
CPT/HCPCS: 36415; 74160; 74176; 80053; 81001; 81025; 82150; 83605; 83690; 85025; 87086; 93005; 93306; 96365; 99284; Q9967

== ENCOUNTER 2019-04-04 14:19 | Emergency (ER) | payer BC, SELFPAY ==
[2019-04-04 14:19] VITALS: BP 157/97; PULSE 100; RESP 22; TEMP 36.8; O2SAT 100; BMI 33.0
--- NOTE | 2019-04-04 14:26 | HMH.EDUTC ---
[facility] [place] Impression: Head ache Qualifiers: Headache type: unspecified Headache chronicity pattern: acute headache Intractability: not intractable Qualified Code(s): R51 - Headache Disposition: Home, Self-Care Condition on Discharge: Good Instructions: DI for Headache Additional Instructions: Follow up with a regular doctor. Keep trying to find one that takes your insurance. Watch your blood pressure. Check it at home or in stores that have blood pressure machines. Follow up with a regular doctor to have it rechecked also. If your headache continues, you need a ct scan. Please get a regular doctor or return to the er if you are not getting any better. Take the ibuprofen for pain. GO TO THE ER FOR ANY WORSENING OR CONTINUING HEADACHE OR OTHER SYMPTOMS Prescriptions: Ibuprofen [Ibuprofen 800mg Tablet] 800 mg PO Q8HP PRN #30 tab PRN Reason: Moderate Pain Referrals: Provider,Referral, MD [Primary Care Provider] - Time of Disposition: 14:54 Medical Decision Making - Medical Records Medical records reviewed: Yes: I reviewed the patient's medical records. - Grant Inquiry Pt receiving controlled substance: No Grant was queried for this patient: No Vital Signs: 04/04/19 14:19 04/04/19 14:57 Temperature 98.3 F 98 F Temperature Source Oral Oral Pulse Rate 65 Pulse Rate [Brachial] 100 H Respiratory Rate 22 18 Blood Pressure 126/66 Blood Pressure [Left Arm] 157/97 H Blood Pressure Mean [Left Arm] 117 Blood Pressure Source [Left Arm] Automatic Cuff Blood Pressure Position [Left Arm] Supine 02 Sat by Pulse Oximetry 100 Oxygen Delivery Method Room Air Room Air - Lab Data Lab results reviewed: Yes: I reviewed the patient's lab results. Lab Results 04/04/19 14:33: Strep Scn Rapid Clinic Negative Orders (Tests/Meds): ORDERS Category Date Time Status Strep Screen Confirmation Stat Micro 04/04/19 14:33 [place] [facility] [place] - General Stated complaint: Head Pain Time Seen by Provider: 04/04/19 14:26 - History of Present Illness Provider Complaint: She c/o head ache on and off for the past 3 weeks. It is worse when she lies down and put pressure on the back of her head. She also has some swelling in her lymph nodes of her anterior neck. She denies any sore throat. She refuses to go to the ER for this head ache. She denies it is the worst head ache of her life. She denies any vision changes or weakness. - Related Data Previous Rx's Medication Instructions Recorded Azithromycin [Z-Adonis 250mg Tab] 250 mg PO UD DOSE PK #6 tab 11/02/18 Methocarbamol [Robaxin 500mg Tab] 500 mg PO BIDP PRN #30 tab 03/30/19 methylPREDNISolone [Medrol] 4 mg PO DIRECTED 6 Days #21 03/30/19 tab.ds.pk Ibuprofen [Ibuprofen 800mg 800 mg PO Q8HP PRN #30 tab 04/04/19 Tablet] Allergies Allergy/AdvReac Type Severity Reaction Status Date / Time No Known Allergies Allergy Verified 11/02/18 14:31 [facility] History - Hepatitis A Screen Attestation statement:: This patient has been screened for Hepatitis A risk factors. I have reviewed the patient's past medical history: Yes Medical History: Denies:: Cancer, Diabetes Mellitus Type 1, Diabetes Mellitus Type 2, MRSA Amputation: No Fractures: No - Social History Smoking Status: Never smoker Alcohol Intake: never Occupational Status: employed ROS Obtained: Yes All systems reviewed & no additional complaints - Constitutional Constitutional: Denies chills, Denies fever(s), Denies poor appetite - Eyes Eyes: Denies blind spots, Denies blurry vision, Denies change in vision, Denies diplopia, Denies eye discharge - ENT Ears, Nose, Mouth, and Throat: Denies dizziness, Denies otalgia, Denies sore throat, Denies ringing in the ears, Denies vertigo/dizziness - Cardiovascular Cardiovascular: Denies chest pain - Respiratory Respiratory: No chest congestion, No cough, No stridor, No wheezing - Gastrointest
[2019-04-04 14:43] LABS: UTC Strep Screen (Rapid) Negative (Negative)
[2019-04-04 14:57] VITALS: BP 126/66; PULSE 65; RESP 18; TEMP 36.6; O2SAT 100
== END 2019-04-04 14:59 | disposition home or self-care (01) ==
PROVIDERS: Emergency Provider Nurse Practitioner Family
DX: R51 Headache (principal)
CPT/HCPCS: 87880; 99201

== ENCOUNTER 2020-09-30 13:42 | Emergency (ER) | payer BC, SELFPAY ==
[2020-09-30 14:30] VITALS: BP 136/92; PULSE 87; RESP 18; TEMP 36.4; O2SAT 98; BMI 35.5
--- NOTE | 2020-09-30 14:59 | HMH.EDUTC ---
[facility] [place] Disposition Clinical Impression: Sinusitis Qualifiers: Sinusitis location: unspecified location Chronicity: unspecified Qualified Code(s): J32.9 - Chronic sinusitis, unspecified Disposition: Home, Self-Care Condition on Discharge: Good Instructions: Sinusitis, DI for Sinusitis, DI for Cough -- Adult, Guaifenesin Additional Instructions: ? Start antibiotic today. Be sure to complete entire prescription even if feeling better ? Monitor temp. Tylenol every 4 hours as needed and / or ibuprofen every 6 hours as needed ( As long as your primary care physician has told you that it ok to take both. For fever/aches/pains ER if no less than 101 despite Tylenol or Motrin ? Humidifier/vaporizer or hot steamy shower ? Mucinex during the day for your cough and cough suppressant only at night. Be sure to drink lots of water. Insurance may not cover a prescriptions for mucinex. Might be cheaper to get 400mg tablets and take 2 tablet in the morning, mid-day and evening with lots of water. *Start steroid today. Helps with inflammation therefore, cough and wheezing. Follow directions on the package. Reviewed side effects. Patient reports taking them before. Augmentin can cause GI effects. Probiotics may help to prevent these symptoms Follow up with family doctor if no improvement or any worsening of symptoms Follow up IMMEDIATELY for new or worsening of symptoms OR no noticeable improvement over the next 48-72 hours. 911 immediately for any life threatening symptoms such as chest pain or difficulty breathing Prescriptions: Amoxicillin/Potassium Clav [Augmentin 875-125 Tablet] 1 tab PO Q12H 10 Days #20 tab Transmission Status: Received by [id number] methylPREDNISolone [Medrol 4mg tab] 4 mg PO DIRECTED #21 tab Transmission Status: Received by [id number] Referrals: Pratik Soto [Primary Care Provider] - As needed Time of Disposition: 15:08 Medical Decision Making - Grant Inquiry Pt receiving controlled substance: No Grant was queried for this patient: No Vital Signs: 09/30/20 14:30 09/30/20 15:14 Temperature 97.6 F 97.6 F Temperature Source Oral Pulse Rate 87 Pulse Rate [Right Brachial] 87 Respiratory Rate 18 18 Blood Pressure 136/92 H Blood Pressure [Right Arm] 136/92 H Blood Pressure Mean [Right Arm] 106 Blood Pressure Source [Right Arm] Automatic Cuff Blood Pressure Position [Right Arm] Sitting 02 Sat by Pulse Oximetry 98 Oxygen Delivery Method Room Air Medical Decision Narrative: Discussed chest xray and patient declined at this time [facility] [place] HPI - General Stated complaint: sinus pressure cough up green stuff Time Seen by Provider: 09/30/20 14:59 Mode of Arrival: Ambulatory Source of Information: Patient Limitations: No Limitations Description of Symptoms (Recalled from Triage Doc. by RN): PATIENT C/O SINUS AND CHEST PRESSURE X 1 MONTH HEENT Symptoms (Recalled from RN notes): Yes Resp Symptoms (Recalled from RN notes): No Skin Symptoms (Recalled from RN notes): No MS Symptoms (Recalled from RN notes): No Functional Status (Recalled from RN notes): WNL - History of Present Illness Provider Complaint: Patient state thats he has been having sinus pain and pressure on and off for over a month and feels like it is trying to move into her chest States that this morning after she woke up she coughed up some yellowish green mucous like she is blowing from her nose States that the drainage is going down her throat and worried that it will move into her chest - Related Data Home Medications Medication Instructions Recorded Confirmed cetirizine 10 mg tablet mg PO 10/04/19 11/01/19 fluticasone propionate 93 2 spray INTRANASAL BID 10/04/19 11/01/19 mcg/actuation breath activated aerosol Previous Rx's Medication Instructions Recorded Amoxicillin/Potassium Clav 1 tab PO Q12H 10 Days #20 tab 09/30/20 [Augmentin 875-125 Tablet] methylPREDNISolone [Medrol 4mg 4 mg PO DI
[2020-09-30 15:14] VITALS: BP 136/92; PULSE 87; RESP 18; TEMP 36.4; O2SAT 98
== END 2020-09-30 15:15 | disposition home or self-care (01) ==
PROVIDERS: Emergency Provider Nurse Practitioner; PCP Pediatrics
DX: J32.9 Chronic sinusitis, unspecified (principal)
CPT/HCPCS: 99201